=== PATIENT | male | born 1950 | race Caucasian/White ===

== ENCOUNTER 2021-05-25 08:24 | Outpatient (CLI) | payer MEDICARE, BC | END 2021-05-25 08:25 | disposition home or self-care (01) | LOC: CSHRAD 08:24 | PROVIDERS: ATTEND Surgery | DX: M54.6 Pain in thoracic spine (principal); M54.50 Low back pain, unspecified; Z98.890 Other specified postprocedural states; M47.814 Spondylosis without myelopathy or radiculopathy, thoracic region; M47.816 Spondylosis without myelopathy or radiculopathy, lumbar region; T84.216A Breakdown (mechanical) of internal fixation device of vertebrae, initial encounter | CPT/HCPCS: 72070; 72100 ==

== ENCOUNTER 2021-05-27 10:15 | Outpatient (CLI) | payer MEDICARE, BC | END 2021-05-27 10:16 | disposition home or self-care (01) | LOC: CSHCT 10:15 | PROVIDERS: ATTEND Surgery | DX: M54.50 Low back pain, unspecified (principal); M47.816 Spondylosis without myelopathy or radiculopathy, lumbar region; Z98.890 Other specified postprocedural states | CPT/HCPCS: 72131 ==